=== PATIENT | female | born 1990 | race Caucasian/White ===

== ENCOUNTER 2017-12-15 13:50 | Emergency (ER) | payer SELFPAY ==
--- NOTE | 2017-12-15 16:52 | ER ---
Nurse's Notes [facility] Name: Larissa Pittman Age: 27 yrs Sex: Female : 1990 Arrival Date: 12/15/2017 Time: 13:56 Bed Waiting Private MD: None, None Diagnosis: Presentation: 12/15 14:18 Presenting complaint: Patient states: Lower abdominal pain for 5 days. C section 1 aj month ago. Denies N/V/D or fever. Transition of care: patient was not received from another setting of care. Onset of symptoms was December 10, 2017. Risk Assessment: Do you want to hurt yourself or someone else? Patient reports no desire to harm self or others. Initial Sepsis Screen: Does the patient meet any 2 criteria? No. Patient's initial sepsis screen is negative. Does the patient have a suspected source of infection? No. Patient's initial sepsis screen is negative. Care prior to arrival: None. 14:18 Method Of Arrival: Ambulatory aj 14:18 Acuity: MUSHTAQ 3 aj Triage Assessment: 14:20 General: Appears in no apparent distress. comfortable, Behavior is calm, cooperative, aj appropriate for age. Pain: Complains of pain in pelvis. Neuro: Level of Consciousness is awake, alert, obeys commands, Oriented to person, place, time, situation, Appropriate for age. Respiratory: Airway is patent Respiratory effort is even, unlabored, Respiratory pattern is regular, symmetrical. GI: Reports lower abdominal pain. Derm: Skin is intact, is healthy with good turgor, Skin is pink, warm \T\ dry. normal. 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 - Social history:: Smoking status: Patient uses tobacco products, smokes one-half pack cigarettes per day. - Ebola Screening: : Patient negative for fever greater than or equal to 101.5 degrees Fahrenheit, and additional compatible Ebola Virus Disease symptoms Patient denies exposure to infectious person Patient denies travel to an Ebola-affected area in the 21 days before illness onset No symptoms or risks identified at this time. Vital Signs: 14:20 BP 147 / 83; Pulse 87; Resp 20; Temp 97.2; Pulse Ox 99% on R/A; Weight 72.57 kg; Height aj 5 ft. 0 in. (152.40 cm); 14:20 Body Mass Index 31.25 (72.57 kg, 152.40 cm) aj ED Course: 13:56 Patient arrived in ED. mr 13:57 None, None is Private Physician. mr 14:20 Triage completed. aj 14:20 Arm band placed on left wrist. Patient placed in waiting room, Patient notified of wait aj time. 16:50 Walter Asher MD is Attending Physician. aj Administered Medications: No medications were administered Outcome: 16:50 Patient left the ED. aj Signatures: Vanna Leiva, RN RN Kristine Renee mr
== END 2017-12-15 16:50 | disposition left against medical advice (07) ==
LOC: ER 13:50
DX: Z53.21 Procedure and treatment not carried out due to patient leaving prior to being seen by health care provider (principal)
CPT/HCPCS: 99281